=== PATIENT | female | born 1990 ===

== ENCOUNTER 2021-02-01 11:04 | Inpatient (IN) | payer BC ==
--- NOTE | 2021-02-01 08:03 | PCM.LDHP ---
L&D History of Present Illness - General Date of Service: 02/01/21 Admit Problem/Dx: Admission Diagnosis/Problem Admission Diagnosis/Problem 02/01/21 07:53 Donta is a 30-year-old 1 para 0 female admitted on 02/01/2021 at 40-0/7 weeks gestational age with an NOMAN of 02/01/2021 for induction of labor. Source of Information: Patient History Limitations: Reports: No Limitations - History of Present Illness Introduction:: Donta is a 30-year-old 1 para 0 female admitted on 02/01/2021 at 40-0/7 weeks gestational age with an NOMAN of 02/01/2021 for induction of labor. The procedure, process, expectations and limitations of induction of labor discussed in detail with patient. She appears understand and wishes to proceed. 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 She had menarche at age 11. Cycles regular. Last menstrual period started on 04/27/2020 and was definite. Her is dated by this last menstrual period and supported by at least 3 ultrasounds. Patient had a positive hCG on 05/23/2020. She is not using any control at the time of conception. She has had no abnormal Pap smears or STIs in the past. course. Initial first visit was with a very early ultrasound done on 06/19/2020 at 7-3/7 weeks gestational age. She was seen on a very regular basis throughout the . Her vital signs remained stable throughout the . Her weight gain was from 250.2 to 270.8 pounds. Fundal height growth was appropriate. Patient has a history of asthma which has been relatively stable during the . She desires epidural. She has a family history of factor V Leiden mutation but has tested negative for this. Her group B strep screen was negative. Risk factors include increased weight and distance from the hospital as she lives in [place], [place]. Prequel noninvasive screen done after 10 weeks was negative for trisomy 18, 13 and 21. Gender identification consistent with female. She did have a urinary tract infection during . Patient received her Tdap on 01/01/2021. She is rubella immune. Laboratory testing during shows blood to be all positive with a negative antibody screen. Hemoglobin is 12.7 g/dL and platelets are 338,000. She is rubella immune. RPR is nonreactive. Urine culture was negative. Hepatitis B surface antigen and HIV assays were both negative. Chlamydia and gonorrhea tests were negative. TSH done on 12/11/2020 prior to the was negative for abnormalities. Second trimester labs showed a hemoglobin of 11.7 g/dL. She was started on ferrous sulfate 325 mg p.o. daily at that time. Her platelet count was 307,000. Her 1 hour GTT was normal. RPR was nonreactive. Group B strep screen was negative. Allergies: Seasonal allergies only Medications: 1. Omeprazole 40 mg p.o. daily as needed for dyspepsia 2. Montelukast sodium 10 mg p.o. daily for asthma 3. vitamin 1 p.o. daily. 4. Advair Diskus inhaler 250-50 mcg per dose inhaler nation aerosol Powder breath activated 5. Ferrous sulfate 3 and 25 mg p.o. daily 6. Zyrtec 10 mg p.o. daily. Past medical history: 1. Asthma. 2. Seasonal allergies. Past surgical history: 1. [id number] 2. ACL knee surgery 2012 Family history: Mother is alive and well. Father is alive but with hypertension on medications. 2 brothers alive and well but 1 with ADHD. Maternal grandmother secondary to COPD. Maternal grandfather secondary to COPD. Both were smokers. Paternal grandmother alive and well but with hypertension. Paternal grandfather secondary to lung cancerwas a smoker. There is a maternal family history of a maternal aunt and multiple cousins on her maternal side that have factor V Leiden mutation. Patient has been evaluated with factor V Leiden evaluation it which has returned negative. There are no bleeding, related problems in the family. A maternal aunt was noted to have breast cancer in her 50s. Social history: Patient is . She is a [employer] Friend[employer]. She lives in [place], [place]. She is a college graduate. is [place]. She does not use any significant also alcohol, drugs or tobacco. Review of systems: In general patient has no complaints. Baby has been active. Skin: Negative Lungs: No infectious symptoms or shortness of breath Cardiovascular: No chest pain or exercise intolerance Breasts: No lumps, changes in size, pain, dimpling, discharge or axillary or supraclavicular concerns. Changes present that are associated with . GI: Negative : changes in body habitus noted. Musculoskeletal: Negative Neurological: Negative Physical exam: In general the patient is well-developed, well-nourished, pleasant female of stated age in no acute distress. Blood pressure on last evaluation clinic was 122/64. Weight was 270.8 pounds with first weight noted at 250.2 pounds. Height is 5 feet 6 inches. Prepregnancy body mass index was 39.5. Skin is warm dry without lesions. HEENT, neck and back within normal limits. Lungs are clear with good breath sounds in all lung sam. Cardiovascular exam shows regular and rhythm without murmurs. Breast exam was done at first visit and found to be normal and is not repeated at the time of this admission. Abdomen is gravid with last fundal height at 41 cm. Baby in vertex presentation by Mauro maneuvers and by cervical exam. Genital per digital exam at last visit shows cervix to be 1 to 2 cm, 70% effaced, very soft, -3 station. Extremities and neurological exam are grossly within normal limits. H&P Review of Systems - Review of Systems: Review Of Systems: See Below L&D Exam - Exam Exam: See Below - Problem List (1) 40 weeks gestation of SNOMED Code(s): 25736660 ICD Code: Z3A.40 - 40 WEEKS GESTATION OF Status: Acute (2) Obesity (BMI 35.0-39.9 without comorbidity) SNOMED Code(s): 720160766, 675140507 ICD Code: E66.9 - OBESITY, UNSPECIFIED Status: Acute Problem List Initiated/Reviewed/Updated: Yes Assessment/Plan Comment:: 1. Donta is a 30-year-old 1 para 0 female admitted on 02/01/2021 at 40- 0/7 weeks gestational age with an NOMAN of 02/01/2021 for induction of labor. 2. Risk factors for the include increased distance from the hospital, obesity, asthma 3. Group B strep negative 4. Patient plans to breast-feed. 5. Patient desires epidural in labor 6. Patient has received her Tdap during . She is rubella immune. Plan: 1. Cytotec cervical ripening initially: We will give 25 mcg dose first dose vaginally followed by at least 23 doses of 50 mcg vaginally on a every 3 hour basis. Will monitor her asthma very closely. She is to continue on her asthma medications at this time. The risks of Cytotec with history of asthma are discussed with the patient. She has consented to attempting Cytotec cervical ripening after discussion of potential risks and benefits in light of her history of asthma in . This cervical ripening will be followed by Pitocin induction with possible AROM as possible. 2. IV access prior to Cytotec placement 3. Electronic monitoring of labor per protocol 4. Epidural per patient desire for labor analgesia. 5. Anticipate 6. Support breast-feeding decision 7. Admission laboratory testing consist of Covid19 testing, CBC, RPR per protocol.
[2021-02-03] MEDS ORDERED: Sodium Chloride 0.9% 10 ML Syringe FLUSH PRN (08:20)
[2021-02-03] MEDS ORDERED: Nalbuphine 10 MG/1 ML Vial IVPUSH PRN (08:20)
[2021-02-03] MEDS ORDERED: Ondansetron 4 MG/2 ML SDV IVPUSH PRN (08:20)
[2021-02-03] MEDS ORDERED: Lidocaine 1% 50 ML MDV INJECT SCH (08:20)
[2021-02-03] MEDS ORDERED: Acetaminophen 325 MG Tab PO PRN (08:20)
[2021-02-03] MEDS ORDERED: Calcium Carbonate 500 MG Tab.Chew PO PRN (08:20)
[2021-02-03] MEDS ORDERED: Oxytocin/Lactated Ringers 10 UNIT/1,000 ML BAG IV SCH ×2 (08:30)
[2021-02-03] MEDS: Lactated Ringers 1,000 ML IV SCH (09:02)
[2021-02-03] MEDS ORDERED: diphenhydrAMINE 50 MG/ML SDV IVPUSH PRN (09:56)
[2021-02-03] MEDS ORDERED: fentaNYL 100 MCG/2 ML SDV EPIDUR PRN (09:56)
[2021-02-03] MEDS ORDERED: Oxytocin/Lactated Ringers 20 UNIT/1,000 ML BAG IV SCH (17:45)
[2021-02-04] MEDS ORDERED: Misoprostol 25 MCG (1/4 of 100 MCG) Tab VAG ONE ×2 (01:00→04:00)
[2021-02-04] MEDS: Oxytocin/Lactated Ringers 20 UNIT/1,000 ML BAG IV SCH ×2 (06:26→20:25)
--- NOTE | 2021-02-04 07:48 | PCM.SN.2 ---
- Free Text/Narrative Note: Progress note: Patient was found to be 2 cm, 80% effaced, -3 station, cephalic presentation, mid position on last evaluation last evening. Patient did not tolerate the exam well for a number of reasons. Soft tissue presents secondary to patient's body habitus seems to be associated with the very difficult nature of her exam. With Pitocin increased to 30milliunits/min patient did achieve a good labor pattern with moderate contractions every 3 minutes. Hospital course. Last evening the Pitocin was discontinued to allow patient to rest. At approximately 0100 hrs. on 02/04/2021 patient was given a dose of Cytotec 25 mcg vaginally. At 4:00 she is given a second dose of [id number] mcg. With this she has had some uterine irritability. heart tones are reassuring. No formal contractions are seen. Assessment: 1. 40-3/7-week intrauterine , slow progression of cervical dilation. 2. Difficult and uncomfortable exam secondary to soft tissue dystocia/discomfort secondary to patient's body habitus 3. Generally reassuring testing 4. Patient desiring epidural at some point Plan: 1. We will wait with any further cervical exams or attempts at rupture membranes until after patient is in a good labor pattern and has obtained epidural analgesia. 2. Continue intermittent monitoring of heart tones 3. Reassurance
[2021-02-04] MEDS: Lactated Ringers 1,000 ML IV SCH ×4 (10:09→20:25)
[2021-02-04] MEDS: Bupivacaine/fentaNYL/NS 100 ML Bag EPIDUR PRN (16:01)
[2021-02-04] MEDS: ePHEDrine 50 MG/ML SDV IVPUSH PRN ×3 (17:09→17:32)
--- NOTE | 2021-02-04 17:45 | PCM.SN.2 ---
- Free Text/Narrative Note: Procedure: PIV start Start: 1711 Stop: 1731 Called by OB RN to start PIV. She attempted to place x2 without success. U ltrasound utilized with successful attempt with long 20 jillian to right upper arm. Area localized with 0.2 ml of 1% lidocaine. Patient tolerated well. Tiffany Ac ESTHETICIAN SPA
[2021-02-05] MEDS: Lactated Ringers 1,000 ML IV SCH ×3 (00:45→05:54)
[2021-02-05] MEDS: Bupivacaine/fentaNYL/NS 100 ML Bag EPIDUR PRN (02:17)
--- NOTE | 2021-02-05 03:26 | PCM.SN.2 ---
- Free Text/Narrative Note: Progress note: Donta has been in reasonably good labor objectively evaluated with internal pressure catheter for approximately the last 12 hours since SROM. SROM occurred with resultant clear amniotic fluid. heart tones are reassuring. Vital signs are stable. Patient is comfortable with epidural in place and has been able to rest. Evaluation patient cervix reveals 5 cm dilation, -3 station, 90% effacement, soft, mid position. Patient tolerated exam well. Patient still on Pitocin augmentation with reasonably strong contractions occurring every 3 minutes. Assessment: 40-4/7-week intrauterine , very slow progression of labor despite intrauterine pressure catheter objectively adequate labor. Plan: 1. Monitor for just a short period time and if no progress is noted will consider a primary section. The procedure, risk, benefits, continued attempt at vaginal delivery all discussed with patient. She appears understand and is in agreement. 2. labs to be obtained 3. Continue monitoring until final decision is made.
[2021-02-05] MEDS ORDERED: ceFAZolin 1 GM in Premix Bag 1 BAG IV ONE (05:34)
[2021-02-05] MEDS ORDERED: ceFAZolin 2 GM in Premix Bag 1 BAG IV ONE (05:34)
[2021-02-05] MEDS ORDERED: Azithromycin 500 MG in Sodium Chloride 0.9% 250 ML IV STA (05:34)
[2021-02-05] MEDS ORDERED: Citric Acid/Sodium Citrate Solution 30 ML Cup PO ONE (05:34)
[2021-02-05] MEDS ORDERED: Metoclopramide 10 MG/2 ML SDV IVPUSH ONE (05:34)
[2021-02-05] MEDS ORDERED: Metoclopramide 10 MG/2 ML SDV ONE (05:43)
[2021-02-05] MEDS ORDERED: Citric Acid/Sodium Citrate Solution 30 ML Cup ONE (05:43)
[2021-02-05] MEDS ORDERED: Lidocaine 2% with EPINEPHrine 1:200,000 20 ML SDV ONE (05:46)
[2021-02-05] MEDS ORDERED: ceFAZolin 1 GM Vial ONE (05:46)
[2021-02-05] MEDS ORDERED: Ketorolac 30 MG/ML SDV ONE (05:46)
[2021-02-05] MEDS ORDERED: Oxytocin 10 Units/1 ML SDV ONE ×2 (05:46→05:49)
[2021-02-05] MEDS ORDERED: Ondansetron 4 MG/2 ML SDV ONE (05:46)
[2021-02-05] MEDS ORDERED: fentaNYL 100 MCG/2 ML SDV ONE (05:50)
[2021-02-05] MEDS ORDERED: Bupivacaine 0.5% 30 ML SDV ONE (05:59)
[2021-02-05] MEDS ORDERED: fentaNYL 100 MCG/2 ML SDV IVPUSH PRN (06:26)
[2021-02-05] MEDS ORDERED: diphenhydrAMINE 50 MG/ML SDV IVPUSH PRN ×2 (06:26→10:27)
[2021-02-05] MEDS ORDERED: Ondansetron 4 MG/2 ML SDV IVPUSH PRN (06:26)
--- NOTE | 2021-02-05 06:31 | PCM.PREANE ---
Preanesthetic Assessment - Procedure Proposed Procedure: Labor Epidural - Anesthesia/Transfusion/Family Hx Anesthesia History: Prior Anesthesia Without Reaction Family History of Anesthesia Reaction: No Transfusion History: No Prior Transfusion(s) - Review of Systems General: No Symptoms Pulmonary: Other (Asthma controlled with advair. ) Cardiovascular: No Symptoms Gastrointestinal: No Symptoms Neurological: No Symptoms Other: Reports: None (Obesity BMI 44) - Physical Assessment Vital Signs: Last Vital Signs Temp 37.6 C 02/03/21 08:21 Pulse 96 02/03/21 08:21 Resp 14 02/03/21 08:21 BP 124/86 02/03/21 08:21 Pulse Ox Height: 1.68 m Weight: 123.559 kg ASA Class: 3 Mental Status: Alert & Oriented x3 Airway Class: Mallampati = 1 Dentition: Reports: Normal Dentition Thyro-Mental Finger Breadths: 3 Mouth Opening Finger Breadths: 3 ROM/Head Extension: Full Lungs: Clear to Auscultation, Normal Respiratory Effort Cardiovascular: Regular Rate, Regular Rhythm - Lab Values: Laboratory Last Values WBC 12.27 K/mm3 (3.98-10.04) H 02/03/21 08:32 RBC 4.46 M/mm3 (3.98-5.22) 02/03/21 08:32 Hgb 13.1 gm/dl (11.2-15.7) 02/03/21 08:32 Hct 39.8 % (34.1-44.9) 02/03/21 08:32 MCV 89.2 fl (79.4-94.8) 02/03/21 08:32 MCH 29.4 pg (25.6-32.2) 02/03/21 08:32 MCHC 32.9 g/dl (32.2-35.5) 02/03/21 08:32 RDW Std Deviation 50.5 fL (36.4-46.3) H 02/03/21 08:32 Plt Count 284 K/mm3 (182-369) 02/03/21 08:32 MPV 10.1 fl (9.4-12.3) 02/03/21 08:32 Neut % (Auto) 76.4 % (34.0-71.1) H 02/03/21 08:32 Lymph % (Auto) 14.5 % (19.3-51.7) L 02/03/21 08:32 Roosevelt % (Auto) 6.7 % (4.7-12.5) 02/03/21 08:32 Eos % (Auto) 1.3 (0.7-5.8) 02/03/21 08:32 Baso % (Auto) 0.2 % (0.1-1.2) 02/03/21 08:32 Neut # (Auto) 9.38 K/mm3 (1.56-6.13) H 02/03/21 08:32 Lymph # (Auto) 1.78 K/mm3 (1.18-3.74) 02/03/21 08:32 Roosevelt # (Auto) 0.82 K/mm3 (0.24-0.36) H 02/03/21 08:32 Eos # (Auto) 0.16 K/mm3 (0.04-0.36) 02/03/21 08:32 Baso # (Auto) 0.02 K/mm3 (0.01-0.08) 02/03/21 08:32 Manual Slide Review Abnormal smear 02/03/21 08:32 RPR Non-reactive (NONREACTIVE) 02/03/21 08:32 SARS-CoV-2 RNA (HUBERT) Negative (NEGATIVE) 02/03/21 07:50 Blood Type O POSITIVE 02/05/21 05:19 Gel Antibody Screen Negative 02/05/21 05:19 - Allergies Allergies/Adverse Reactions: Allergies Allergy/AdvReac Type Severity Reaction Status Date / Time No Known Allergies Allergy Verified 02/03/21 08:24 - Acknowledgements Anesthesia Type Planned: Epidural Pt an Appropriate Candidate for the Planned Anesthesia: Yes Alternatives and Risks of Anesthesia Discussed w Pt/Guardian: Yes Pt/Guardian Understands and Agrees with Anesthesia Plan: Yes PreAnesthesia Questionnaire Respiratory History: Reports: Asthma Gastrointestinal History: Reports: [employer] History: Reports: - Past Surgical History GI Surgical History: Reports: Cholecystectomy Musculoskeletal Surgical History: Reports: Other (See Below) Other Musculoskeletal Surgeries/Procedures:: Lt ACL repair - SUBSTANCE USE Tobacco Use Status *Q: Never Tobacco User Tobacco Use Within Last Twelve Months: No Second Hand Smoke Exposure: No Recreational Drug Use History: No - HOME MEDS Home Medications: Home Meds Albuterol Sulfate [Albuterol Sulfate HFA] 1 puff INH ASDIRECTED PRN 02/03/21 [History] Cetirizine HCl [Zyrtec] 10 mg PO DAILY 02/03/21 [History] Ferrous Sulfate [Iron] 325 mg PO DAILY 02/03/21 [History] Fluconazole 1 tab PO DAILY MDD 3 02/03/21 [History] Fluticasone Propion/Salmeterol [Advair 250-50 Diskus] 1 spray NASBOTH DAILY 02/03/21 [History] Montelukast Sodium 10 mg PO DAILY 02/03/21 [History] Omeprazole 1 cap PO DAILY 02/03/21 [History] No122/Iron/Folic Acid [ Multi Tablet] 1 tab PO DAILY 02/03/21 [History] - CURRENT (IN HOUSE) MEDS Current Meds: Current Medications Acetaminophen (Acetaminophen 325 Mg Tab) 650 mg PO Q4H PRN PRN Reason: Pain (Mild 1-3) and fever Calcium Carbonate/Glycine (Calcium Carbonate 500 Mg Tab.Chew) 1,000 mg PO Q2H PRN PRN Reason: Indigestion Last Admin: 02/04/21 01:22 Dose: 1,000 mg Documented by: Diphenhydramine HCl (Diphenhydramine 50 Mg/Ml Sdv) 25 mg IVPUSH Q6H PRN PRN Reason: pruritis Last Admin: 02/05/21 00:59 Dose: 25 mg Documented by: Diphenhydramine HCl (Diphenhydramine 50 Mg/Ml Sdv) 25 mg IVPUSH Q6H PRN PRN Reason: Pruritis Ephedrine Sulfate (Ephedrine 50 Mg/Ml Sdv) 5 mg IVPUSH ASDIRECTED PRN PRN Reason: Hypotension Last Admin: 02/04/21 17:32 Dose: 10 mg Documented by: Fentanyl (Fentanyl 100 Mcg/2 Ml Sdv) 100 mcg EPIDUR Q3H PRN PRN Reason: Pain Last Admin: 02/04/21 16:00 Dose: 100 mcg Documented by: Fentanyl (Fentanyl 100 Mcg/2 Ml Sdv) 50 mcg IVPUSH Q5M PRN PRN Reason: Pain Fentanyl/Bupivacaine HCl (Bupivacaine/Fentanyl/Ns 100 Ml Bag) 100 ml EPIDUR ASDIRECTED PRN PRN Reason: Pain Last Admin: 02/05/21 02:17 Dose: 100 ml Documented by: Oxytocin/Lactated Ringer's (Pitocin In Lr 10 Units/1,000 Ml) 10 unit in 1,000 mls @ 100 mls/hr IV .CONTINUOUS CA; Protocol Lactated Ringer's (Ringers, Lactated) 1,000 mls @ 100 mls/hr IV ASDIRECTED CA Last Admin: 02/05/21 05:54 Dose: 100 mls/hr Documented by: Oxytocin/Lactated Ringer's (Pitocin In Lr 20 Units/1,000 Ml) 20 unit in 1,000 mls @ 6 mls/hr IV TITRATE CA; Protocol Last Admin: 02/04/21 20:25 Dose: 90 mls/hr Documented by: Azithromycin 500 mg/ Sodium (Chloride) 250 mls @ 250 mls/hr IV ONETIME STA Stop: 02/05/21 06:33 Last Admin: 02/05/21 05:57 Dose: 250 mls/hr Documented by: Lidocaine HCl (Lidocaine 1% 50 Ml Mdv) 50 ml INJECT ONETIME CA Nalbuphine HCl (Nalbuphine 10 Mg/1 Ml Vial) 10 mg IVPUSH Q2H PRN PRN Reason: Pain Ondansetron HCl (Ondansetron 4 Mg/2 Ml Sdv) 4 mg IVPUSH Q4H PRN PRN Reason: Nausea/Vomiting Last Admin: 02/04/21 17:45 Dose: 4 mg Documented by: Ondansetron HCl (Ondansetron 4 Mg/2 Ml Sdv) 4 mg IVPUSH ONETIME PRN PRN Reason: Nausea/Vomiting Sodium Chloride (Sodium Chloride 0.9% 10 Ml Syringe) 10 ml FLUSH ASDIRECTED PRN PRN Reason: Keep Vein Open Discontinued Medications Bupivacaine HCl (Bupivacaine 0.5% 30 Ml Sdv) Confirm Administered Dose 30 ml .ROUTE .STK-MED ONE Stop: 02/05/21 06:00 Cefazolin Sodium (Cefazolin 1 Gm Vial) Confirm Administered Dose 3 gm .ROUTE .STK-MED ONE Stop: 02/05/21 05:47 Citric Acid/Sodium Citrate (Citric Acid/Sodium Citrate Solution 30 Ml Cup) Confi rm Administered Dose 30 ml .ROUTE .STK-MED ONE Stop: 02/05/21 05:44 Citric Acid/Sodium Citrate (Citric Acid/Sodium Citrate Solution 30 Ml Cup) 30 ml PO ONETIME ONE Stop: 02/05/21 05:35 Last Admin: 02/05/21 05:55 Dose: 30 ml Documented by: Fentanyl (Fentanyl 100 Mcg/2 Ml Sdv) Confirm Administered Dose 100 mcg .ROUTE .STK-MED ONE Stop: 02/05/21 05:51 Oxytocin/Lactated Ringer's (Pitocin In Lr 10 Units/1,000 Ml) 10 unit in 1,000 mls @ 12 mls/hr IV TITRATE CA; Protocol Last Titration: 02/03/21 17:59 Dose: 30 munits/min, 180 mls/hr Documented by: Oxytocin/Lactated Ringer's (Pitocin In Lr 20 Units/1,000 Ml) 20 unit in 1,000 mls @ 90 mls/hr IV TITRATE CA; Protocol Last Admin: 02/03/21 18:36 Dose: 90 mls/hr Documented by: Cefazolin Sodium/Dextrose 2 gm (/ Premix) 50 mls @ 100 mls/hr IV ONETIME ONE Stop: 02/05/21 06:03 Cefazolin Sodium/Dextrose 1 gm (/ Premix) 50 mls @ 100 mls/hr IV ONETIME ONE Stop: 02/05/21 06:03 Ketorolac Tromethamine (Ketorolac 30 Mg/Ml Sdv) Confirm Administered Dose 30 mg .ROUTE .STK-MED ONE Stop: 02/05/21 05:47 Lidocaine/Epinephrine (Lidocaine 2% With Epinephrine 1:200,000 20 Ml Sdv) Confirm Administered Dose 20 ml .ROUTE .STK-MED ONE Stop: 02/05/21 05:47 Metoclopramide HCl (Metoclopramide 10 Mg/2 Ml Sdv) Confirm Administered Dose 10 mg .ROUTE .STK-MED ONE Stop: 02/05/21 05:44 Metoclopramide HCl (Metoclopramide 10 Mg/2 Ml Sdv) 10 mg IVPUSH ONETIME ONE Stop: 02/05/21 05:35 Last Admin: 02/05/21 05:55 Dose: 10 mg Documented by: Misoprostol (Misoprostol 25 Mcg (1/4 Of 100 Mcg) Tab) 25 mcg VAG ONETIME ONE Stop: 02/04/21 01:01 Last Admin: 02/04/21 01:14 Dose: 25 mcg Documented by: Misoprostol (Misoprostol 25 Mcg (1/4 Of 100 Mcg) Tab) 50 mcg VAG ONETIME ONE Stop: 02/04/21 04:01 Last Admin: 02/04/21 04:15 Dose: 50 mcg Documented by: Ondansetron HCl (Ondansetron 4 Mg/2 Ml Sdv) Confirm Administered Dose 4 mg .ROUTE .STK-MED ONE Stop: 02/05/21 05:47 Oxytocin (Oxytocin 10 Units/1 Ml Sdv) Confirm Administered Dose 10 unit .ROUTE .STK-MED ONE Stop: 02/05/21 05:47 Oxytocin (Oxytocin 10 Units/1 Ml Sdv) Confirm Administered Dose 10 unit .ROUTE .STK-MED ONE Stop: 02/05/21 05:50
[2021-02-05] MEDS ORDERED: Methylergonovine 0.2 MG/1 ML Amp ONE ×2 (06:33→09:16)
[2021-02-05] MEDS ORDERED: Dexamethasone 4 MG/ML 5 ML MDV ONE (06:35)
[2021-02-05] MEDS ORDERED: Lactated Ringers 1,000 ML ONE ×2 (06:42)
[2021-02-05] MEDS ORDERED: Morphine PF 10 MG/10 ML SDV ONE (06:45)
--- NOTE | 2021-02-05 07:13 | PCM.POSTAN ---
POST ANESTHESIA ASSESSMENT - MENTAL STATUS Mental Status: Alert, Oriented - VITAL SIGNS Vital Signs: Last Vital Signs Temp 37.6 C 02/03/21 08:21 Pulse 96 02/03/21 08:21 Resp 14 02/03/21 08:21 BP 124/86 02/03/21 08:21 Pulse Ox 0705 86/62 78 23 97.2 23 - RESPIRATORY Respiratory Status: Respiratory Rate WNL, Airway Patent, O2 Saturation Stable - CARDIOVASCULAR CV Status: Pulse Rate WNL, Blood Pressure Stable - GASTROINTESTINAL GI Status: No Symptoms - PAIN Pain Score: 0 - POST OP HYDRATION Hydration Status: Adequate & Stable
--- NOTE | 2021-02-05 07:23 | PCM.OPNOTE ---
- General Post-Op/Procedure Note Date of Surgery/Procedure: 02/05/21 Operative Procedure(s): Primary low uterine segment transverse section through Pfannenstiel skin incision Findings: Cervix was dilated to 5 cm, 80% effaced, -3 to -4 station, mid to anterior position, soft. Baby is in vertex presentation. Amniotic fluid was clear. At the time of surgery uterus, tubes and ovaries were consistent with term . No abnormalities were noted.\\Baby was delivered at 0624 hrs. Had Apgars of 8 and 9. Weight was 4340 g (9 pounds 9 ounces), length was 21 inches. Pre Op Diagnosis: 1. 40-4/7 weeks intrauterine , failure to progress Post-Op Diagnosis: Same with delivery of a macrosomic baby Anesthesia Technique: Epidural Other Anesthesia Type: Marcaine 0.5% - 20 cclocal Primary Surgeon: Oneil Mendes Secondary Surgeon: Hallie Ac Anesthesia Provider: Jeannette Garrett Licensed Customs Broker: Tiffany cA (Nurse health program analyst) Reason Licensed Customs Broker Was Necessary: Assistance, retraction, patient safety, quality of care. Fluid Replacement, Intraop: 1,200 Output, Urine Amount: 100 EBL in mLs: 900 Drain/Tube Comments:: Indwelling bladder catheter Complications: None Condition: Good Free Text/Narrative:: Intake & Output 02/04/21 02/05/21 02/05/21 22:59 06:59 14:59 Intake Total 4000 2000 Output Total Balance 4016 2000 Surgery duration: 34 minutes Surgery duration: Procedure: The patient is appropriately consented. Patient was transferred to the room and placed in a sitting position. Epidural used for labor analgesia was used to obtain anesthesia. After confirmation of adequate anesthesia patient was placed in a supine position with a wedge under her right side to facilitate left lateral positioning. The patient was prepped and draped in usual fashion after Stevenson catheter was already placed . The anesthetic was checked and found to be adequate. 20 mL of Marcaine 0.5% was injected locally in the Pfannenstiel incision site. The Pfannenstiel skin incision was then made and carried down through skin, subcutaneous and fascial layers. The fascia was then undermined superiorly and inferiorly to allow for adequate operating room. The recti muscles midline and preperitoneal fat was bluntly dissected. Peritoneal cavity was entered longitudinally. The vesicouterine peritoneum was then incised transversely and bladder flap was developed. Myometrium was incised transversely to the level of the amniotic sac. This incision was extended bilaterally in a blunt fashion. The amniotic sac was then ruptured resulting in clear amniotic fluid. A hand is placed in the low uterine segment and the baby's head was brought forth through the incision. The baby was completely delivered using fundal pressure in a routine fashion. The nose and mouth were bulb suctioned. Baby's cord was clamped x2 cut and baby was handed off to attending information management specialist Dr Walker. Placenta was expressed after cord blood was obtained. Uterus was then exteriorized to allow for easier closure. The cervix was assessed and found to be dilated adequately to allow egress of blood. The uterus was closed in 2 layers. The first layer a running locked suture of 0 Monocryl, the second layer a running horizontal mattress suture of 0 Monocryl. [id number] suture was placed at mid incision and at the left end of the uterine incision to control 2 bleeders. Hemostasis confirmed at this time. Sponge, instrument and needle counts are correct. The patient was given Methergine 0.2 mg IM to facilitate increase in uterine tone and decrease likelihood of bleeding. The uterus was returned to the abdominal cavity and lateral gutters were cleared of blood. Once again sponge needle counts are correct. The anterior abdominal wall was closed with a #1 PDS suture from angle to angle. The subcutaneous area was found to be free of any bleeders. interrupted sutures of 3-0 Monocryl were used to reapproximate the subcutaneous layer.Skin was closed with a running subcuticular stitch of 3-0 Monocryl in a vertical mattress suture fashion using a Adair needle. Prineo mesh/glue was then applied to further approximate the incision. It should be noted that patient received 3 g of Ancef preoperatively for infection prophylaxis and had Pitocin infused after delivery of the placenta to facilitate uterine contraction. She also had sequential compression stockings in place for DVT prophylaxis. Patient was discharged from the operating room in satisfactory condition.
[2021-02-05] MEDS ORDERED: Misoprostol 200 MCG Tab ONE (08:31)
[2021-02-05] MEDS ORDERED: Misoprostol 200 MCG Tab PO ONE (08:33)
[2021-02-05] MEDS ORDERED: Methylergonovine 0.2 MG/1 ML Amp IM STA ×2 (09:15→14:45)
--- NOTE | 2021-02-05 09:23 | PCM.SN.2 ---
- Free Text/Narrative Note: I was called concerning post operative vaginal bleeding and uterine fundal height above the umbilicus. Nurses expressed concern about potential retained clots leading to lack of contraction/involution of the uterus and continued postoperative bleeding after section done this AM. Patient had an extended labor. She had reasonably good uterine contractility after delivery with the assistance of Methergine 0.2 mg IM and IV Pitocin. On evaluation patient is having her blood drawn. Her pulse was 122. Blood pressure is good. O2 saturations were 97-98% on room air. Patient was feeling fine. Was beginning to have some discomfort coming back after the epidural has begun wearing off. Incision appears to be dry and intact. No evidence of abdominal hematoma. Initially uterus was approximately 3 to 4 cm above the umbilicus. Patient's evaluation was very difficult because of her body habitus and her increased weight. Nurses reported she had probably about 900-1000 ml of blood loss in the PACU and since returning to the floor. A clot was previously expressed and she had some on bright red blood noted on repeated chux that were changed. Vaginal exam was performed and with this couple clots were expressed. Probably another 300 cc total. With this uterine fundal height returned to about the level of the umbilicus. Patient previously given 400 mcg of Cytotec buccally. Assessment: 1. Vaginal bleeding after section this morning. Uterine enlargement extending to above the umbilicus with reduction in size after expression of clots vaginally. Findings are probably consistent with some uterine atony which patient is at high risk for because of her extended labor. 2. Prolonged labor course with induction over 2 days with resultant failure to progress and done the same. 3. Urine output was approximately 125-150 mL in the PACU. Has been approximate 25 mL over the last hour upon return to the floor. The blood is somewhat blood- tinged. 4. Patient's pain control is adequate at this time. Plan: 1. Tranexamic acid 1 g to be given IV over 10 minutes 2. Methergine 0.2 mg IM to be given now 3. Obtain labs consist of CBC, coags, comprehensive metabolic profile 4. We will continue to monitor bleeding 5. We will type, crossmatch and transfuse as indicated by blood count and continued bleeding 6. If bleeding continues will consider doing an ultrasound to evaluate for other potential causes of blood loss such as a hematoma 7. Continue monitoring urine output, vital signs and O2 sat.
[2021-02-05] MEDS ORDERED: Naloxone 0.4 MG/ML SDV IVPUSH PRN (10:27)
[2021-02-05] MEDS ORDERED: ePHEDrine 50 MG/ML SDV IVPUSH PRN (10:27)
[2021-02-05] MEDS ORDERED: Ondansetron 4 MG/2 ML SDV IV PRN (10:27)
[2021-02-05] MEDS ORDERED: Dextrose 5%-Lactated Ringers 1,000 ML IV SCH (10:27)
[2021-02-05] MEDS ORDERED: Sodium Chloride 0.9% 1,000 ML IV ONE (10:55)
[2021-02-05] MEDS ORDERED: Sodium Chloride 0.9% 1,000 ML ONE (10:58)
[2021-02-05] MEDS: Simethicone 80 MG Tab.Chew PO SCH ×3 (14:07→21:51)
[2021-02-05] MEDS: Ibuprofen 800 MG Tab PO SCH ×2 (14:07→21:52)
[2021-02-05] MEDS: Docusate Sodium 100 MG Cap PO SCH ×2 (14:32→21:52)
[2021-02-05] MEDS: Prenatal Multivitamin with Calcium/Folic Acid/Iron Tab PO SCH (14:32)
[2021-02-05] MEDS ORDERED: Misoprostol 200 MCG Tab PO SCH ×3 (15:00→19:00)
--- NOTE | 2021-02-05 16:24 | US ---
Pelvic ultrasound: Multiple real-time images were obtained transabdominally. Comparison: No previous pelvic ultrasound is available. Study is somewhat suboptimal secondary to the patient body habitus. Mixed echogenic debris is seen within a distended endometrial cavity. Findings presumably represent blood clot. Uterine measurements are length 19.8 cm, AP height 8.8 cm, transverse width 9.2 cm. Ovaries are not visualized. No free fluid is seen. Impression: 1. Distended endometrial cavity containing mixed echogenic debris which is most likely from blood clot. Diagnostic code #3
[2021-02-05] MEDS: Acetaminophen/oxyCODONE 325-5 MG Tab PO PRN (18:05)
[2021-02-05] MEDS: Misoprostol 200 MCG Tab PO SCH (23:11)
[2021-02-06] MEDS: Misoprostol 200 MCG Tab PO SCH ×2 (03:07→06:54)
[2021-02-06] MEDS: Ibuprofen 800 MG Tab PO SCH ×3 (06:54→23:29)
--- NOTE | 2021-02-06 08:00 | PCM48HPAN ---
Post Anesthesia Note - EVALUATION WITHIN 48HRS OF ANESTHETIC Vital Signs in Normal Range: Yes Patient Participated in Evaluation: Yes Respiratory Function Stable: Yes Airway Patent: Yes Cardiovascular Function Stable: Yes Hydration Status Stable: Yes Pain Control Satisfactory: Yes Nausea and Vomiting Control Satisfactory: Yes Mental Status Recovered: Yes Vital Signs: Last Vital Signs Temp 98.4 F 02/05/21 20:30 Pulse 82 02/05/21 20:30 Resp 16 02/06/21 07:00 BP 106/58 L 02/05/21 20:30 Pulse Ox 98 02/06/21 07:00 - COMMENTS/OBSERVATIONS Free Text/Narrative:: Patient denying anesthetic complications.
[2021-02-06] MEDS: Simethicone 80 MG Tab.Chew PO SCH ×4 (08:21→21:14)
[2021-02-06] MEDS: Docusate Sodium 100 MG Cap PO SCH ×3 (08:23→23:30)
--- NOTE | 2021-02-06 09:07 | PCM.SN.2 ---
- Free Text/Narrative Note: Post Operative Progress Note POD #1 Subjective: Doing well overall this morning. Reports that she was having some episodes of feeling warm and feeling feverish as well as chills. Reports that it started several hours after taking the Cytotec for uterine tone. Reports that the symptoms have improved as she has gotten further from the last dose of Cytotec. Ambulating without difficulty. Lochia minimal. Stevenson catheter was removed this morning and has felt like she needed to urinate but was unable to void. Passing flatus. Tolerating regular diet without nausea or vomiting. Pain controlled with oral medications. Bottlefeeding with minimal difficulty. Denies any milk production at this time. Denies any lightheadedness, dizziness or shortness of breath with ambulation. Objective: Vitals: Vital Signs - 24 hr 02/05/21 02/05/21 02/05/21 09:15 09:18 10:21 Temperature 37.1 C Pulse, 129 H 126 H 101 H Peripheral Respiratory 16 Rate Blood Pressure 100/60 128/95 H O2 Sat by Pulse 96 96 100 Oximetry 02/05/21 02/05/21 02/05/21 11:04 11:30 13:03 Temperature 36.8 C 36.4 C Pulse, 93 113 H 109 H Peripheral Respiratory 16 16 Rate Blood Pressure 114/75 113/74 O2 Sat by Pulse 99 99 100 Oximetry 02/05/21 02/05/21 02/05/21 16:06 20:00 20:30 Temperature 36.9 C 36.9 C Pulse, 76 82 Peripheral Respiratory 16 16 16 Rate Blood Pressure 102/61 106/58 L O2 Sat by Pulse 100 99 99 Oximetry Physical Exam General: Alert and oriented, no acute distress Lungs: Clear to auscultation bilaterally Heart: Regular rate and rhythm Abdomen: Soft, minimal appropriate tenderness, non-distended, fundus midline, nontender and at the umbilicus Incision: Clean, dry and intact, no erythema, bleeding or drainage with Prineo dressing in place Extremities: No edema in bilateral lower extremities, no calf tenderness bilaterally Labs: Laboratory Results - last 24 hr 02/03/21 02/05/21 02/05/21 Range/Units 08:32 09:06 09:06 WBC 25.25 H (3.98-10.04) K/mm3 RBC 3.51 L (3.98-5.22) M/mm3 Hgb 10.3 L D (11.2-15.7) gm/dl Hct 31.8 L (34.1-44.9) % MCV 90.6 (79.4-94.8) fl MCH 29.3 (25.6-32.2) pg MCHC 32.4 (32.2-35.5) g/dl RDW Std Deviation 50.9 H (36.4-46.3) fL Plt Count 271 (182-369) K/mm3 MPV 10.3 (9.4-12.3) fl Neut % (Auto) 92.1 H (34.0-71.1) % Lymph % (Auto) 3.5 L (19.3-51.7) % [place] % (Auto) 3.8 L (4.7-12.5) % Eos % (Auto) 0 L (0.7-5.8) Baso % (Auto) 0.1 (0.1-1.2) % Neut # (Auto) 23.26 H (1.56-6.13) K/mm3 Lymph # (Auto) 0.89 L (1.18-3.74) K/mm3 [place] # (Auto) 0.95 H (0.24-0.36) K/mm3 Eos # (Auto) 0.01 L (0.04-0.36) K/mm3 Baso # (Auto) 0.02 (0.01-0.08) K/mm3 Manual Slide Review Abnormal smear PT (9.7-12.0) SECONDS INR APTT (21.7-31.4) SECONDS Sodium 137 (136-145) mEq/L Potassium 4.3 (3.5-5.1) mEq/L Chloride 106 (98-107) mEq/L Carbon Dioxide 19 L (21-32) mEq/L Anion Gap 16.3 H (5-15) BUN 11 (7-18) mg/dL Creatinine 1.0 (0.55-1.02) mg/dL Est Cr Clr Drug Dosing 76.31 mL/min Estimated GFR (MDRD) > 60 (>60) mL/min BUN/Creatinine Ratio 11.0 L (14-18) Glucose 99 (70-99) mg/dL Calcium 8.1 L (8.5-10.1) mg/dL Total Bilirubin 0.6 (0.2-1.0) mg/dL AST 16 (15-37) U/L ALT 20 (14-59) U/L Alkaline Phosphatase 147 H (46-116) U/L Total Protein 4.9 L (6.4-8.2) g/dl Albumin 1.8 L (3.4-5.0) g/dl Globulin 3.1 gm/dL Albumin/Globulin Ratio 0.6 L (1-2) Hepatitis C Antibody <0.1 (0.0-0.9) s/co ratio 02/05/21 02/05/21 02/05/21 Range/Units 09:06 09:06 16:30 WBC 24.45 H (3.98-10.04) K/mm3 RBC 2.79 L (3.98-5.22) M/mm3 Hgb 8.2 L D (11.2-15.7) gm/dl Hct 25.5 L (34.1-44.9) % MCV 91.4 (79.4-94.8) fl MCH 29.4 (25.6-32.2) pg MCHC 32.2 (32.2-35.5) g/dl RDW Std Deviation 49.7 H (36.4-46.3) fL Plt Count 232 (182-369) K/mm3 MPV 10.1 (9.4-12.3) fl Neut % (Auto) 87.2 H (34.0-71.1) % Lymph % (Auto) 5.8 L (19.3-51.7) % [place] % (Auto) 6.4 (4.7-12.5) % Eos % (Auto) 0 L (0.7-5.8) Baso % (Auto) 0.1 (0.1-1.2) % Neut # (Auto) 21.32 H (1.56-6.13) K/mm3 Lymph # (Auto) 1.42 (1.18-3.74) K/mm3 [place] # (Auto) 1.57 H (0.24-0.36) K/mm3 Eos # (Auto) 0.00 L (0.04-0.36) K/mm3 Baso # (Auto) 0.02 (0.01-0.08) K/mm3 Manual Slide Review Abnormal smear PT 10.6 (9.7-12.0) SECONDS INR 0.99 APTT 31.1 (21.7-31.4) SECONDS Sodium (136-145) mEq/L Potassium (3.5-5.1) mEq/L Chloride (98-107) mEq/L Carbon Dioxide (21-32) mEq/L Anion Gap (5-15) BUN (7-18) mg/dL Creatinine (0.55-1.02) mg/dL Est Cr Clr Drug Dosing mL/min Estimated GFR (MDRD) (>60) mL/min BUN/Creatinine Ratio (14-18) Glucose (70-99) mg/dL Calcium (8.5-10.1) mg/dL Total Bilirubin (0.2-1.0) mg/dL AST (15-37) U/L ALT (14-59) U/L Alkaline Phosphatase (46-116) U/L Total Protein (6.4-8.2) g/dl Albumin (3.4-5.0) g/dl Globulin gm/dL Albumin/Globulin Ratio (1-2) Hepatitis C Antibody (0.0-0.9) s/co ratio 02/06/21 Range/Units 05:44 WBC 17.44 H (3.98-10.04) K/mm3 RBC 2.71 L (3.98-5.22) M/mm3 Hgb 7.9 L (11.2-15.7) gm/dl Hct 25.0 L (34.1-44.9) % MCV 92.3 (79.4-94.8) fl MCH 29.2 (25.6-32.2) pg MCHC 31.6 L (32.2-35.5) g/dl RDW Std Deviation 51.1 H (36.4-46.3) fL Plt Count 246 (182-369) K/mm3 MPV 10.1 (9.4-12.3) fl Neut % (Auto) 79.2 H (34.0-71.1) % Lymph % (Auto) 14.4 L (19.3-51.7) % [place] % (Auto) 5.6 (4.7-12.5) % Eos % (Auto) 0.7 (0.7-5.8) Baso % (Auto) 0.1 (0.1-1.2) % Neut # (Auto) 13.79 H (1.56-6.13) K/mm3 Lymph # (Auto) 2.52 (1.18-3.74) K/mm3 [place] # (Auto) 0.98 H (0.24-0.36) K/mm3 Eos # (Auto) 0.13 (0.04-0.36) K/mm3 Baso # (Auto) 0.02 (0.01-0.08) K/mm3 Manual Slide Review Abnormal smear PT (9.7-12.0) SECONDS INR APTT (21.7-31.4) SECONDS Sodium (136-145) mEq/L Potassium (3.5-5.1) mEq/L Chloride (98-107) mEq/L Carbon Dioxide (21-32) mEq/L Anion Gap (5-15) BUN (7-18) mg/dL Creatinine (0.55-1.02) mg/dL Est Cr Clr Drug Dosing mL/min Estimated GFR (MDRD) (>60) mL/min BUN/Creatinine Ratio (14-18) Glucose (70-99) mg/dL Calcium (8.5-10.1) mg/dL Total Bilirubin (0.2-1.0) mg/dL AST (15-37) U/L ALT (14-59) U/L Alkaline Phosphatase (46-116) U/L Total Protein (6.4-8.2) g/dl Albumin (3.4-5.0) g/dl Globulin gm/dL Albumin/Globulin Ratio (1-2) Hepatitis C Antibody (0.0-0.9) s/co ratio ASSESSMENT: 31-year-old female -0-0-1 s/p primary section POD #1 for arrest of dilation at 5 cm, complicated by hemorrhage with EBL of approximately 2500 mL, asthma and obesity PLAN: * Doing well overall this morning * No evidence of significant symptoms from her hemorrhage. Her hemoglobin this morning was 7.9 which is stable from yesterday afternoon when it was 8.2. Patient is not having any symptoms from this blood loss following her section. Continue to monitor her blood loss and symptoms closely. * Bottlefeeding with minimal difficulty. Assist as needed * Incision healing well. Continue to keep clean and dry. * Lochia minimal. Continue to monitor for appropriate lochia. * Continue routine post-operative care * Monitor for signs and symptoms of endometritis due to the clearing of clots from the lower uterine segment. Suspect that her fever overnight and this morning was due to the Cytotec that was given for uterine tone. Cytotec discontinued this morning due to ongoing good uterine tone overnight and side effects from the medication. * Anticipate discharge home tomorrow if patient continues to improve and is stable for discharge Carlos A Weiner MD 9:05 AM 02/06/2021
[2021-02-06] MEDS: Prenatal Multivitamin with Calcium/Folic Acid/Iron Tab PO SCH (11:17)
[2021-02-06] MEDS: Acetaminophen/oxyCODONE 325-5 MG Tab PO PRN ×2 (17:01→21:14)
[2021-02-07] MEDS: Acetaminophen/oxyCODONE 325-5 MG Tab PO PRN ×3 (01:20→11:23)
[2021-02-07] MEDS: Ibuprofen 800 MG Tab PO SCH (06:06)
[2021-02-07] MEDS: Simethicone 80 MG Tab.Chew PO SCH (08:04)
[2021-02-07] MEDS: Docusate Sodium 100 MG Cap PO SCH ×2 (08:04→10:42)
[2021-02-07] MEDS: Prenatal Multivitamin with Calcium/Folic Acid/Iron Tab PO SCH (09:46)
--- NOTE | 2021-02-07 14:45 | PCM.DCSUM1 ---
Discharge Summary - Hospital Course Free Text/Narrative:: Donta is a 31-year-old 1 now para 1-0-0-1 white female who was admitted on 02/03/2021 for elective induction of labor at 40-2/7 weeks gestational age. She underwent a very long induction of labor and then failed to progress after around 5 cm. Please see admission history and physical and progress notes for details concerning hospital course. Patient was taken to surgery on 02/05/2021. Please see operative report for details. She underwent a primary low segment transverse section through Pfannenstiel skin incision. Findings at the time of delivery were as follows: Baby is in vertex presentation. Amniotic fluid was clear. At the time of surgery uterus, tubes and ovaries were consistent with term . No abnormalities were noted.\\Baby was delivered at 0624 hrs. Had Apgars of 8 and 9. Weight was 4340 g (9 pounds 9 ou nces), length was 21 inches. She had approximately 900-1000 cc of blood loss at the time of surgery. In the next 24 hours she continued to have an increased rate of flow and over the course of the first 36 hours after surgery had approximately another 1200 cc. Serial CBCs done showed a hemoglobin to decrease to 7.9 mg/dL. Patient is doing well with this however she is ambulating without problems, feels somewhat tired but has no near syncopal episodes. Her vital signs are stable. She is afebrile. White count was elevated at time prior to her but has slowly come down and she is showing no signs of infection at this time. She is breast-feeding without problems. Incision appears to be healing well. She is desiring discharge home. Diagnosis: Stroke: No - Discharge Data Discharge Date: 02/07/21 Discharge Disposition: Home, Self-Care 01 Condition: Good - Referral to Home Health Primary Care Physician: Oneil Mendes MD - Discharge Diagnosis/Problem(s) (1) 40 weeks gestation of SNOMED Code(s): 43991349 ICD Code: Z3A.40 - 40 WEEKS GESTATION OF Status: Acute (2) Obesity (BMI 35.0-39.9 without comorbidity) SNOMED Code(s): 105306907, 448428647 ICD Code: E66.9 - OBESITY, UNSPECIFIED Status: Acute - Patient Summary/Data Operative Procedure(s) Performed: Primary low uterine segment transverse section through Pfannenstiel skin incision - Patient Instructions Diet: Regular Diet as Tolerated (Nursing diet with increased calories and calcium as recommended) Activity: As Tolerated (No lifting greater than 15 pounds or driving a car x10 days. No intercourse or tampons until seen back.) Driving: Do Not Drive Showering/Bathing: May Shower Wound/Incision Care: Keep Operative Site/Wound Site Clean and Dry Notify Provider of: Fever, Increased Pain, Swelling and Redness, Nausea and/or Vomiting - Discharge Plan Home Medications: Home Meds Albuterol Sulfate [Albuterol Sulfate HFA] 1 puff INH ASDIRECTED PRN 02/03/21 [History] Ferrous Sulfate [Iron] 325 mg PO DAILY 02/03/21 [History] Fluticasone Propion/Salmeterol [Advair 250-50 Diskus] 1 spray NASBOTH DAILY 02/03/21 [History] Montelukast Sodium 10 mg PO DAILY 02/03/21 [History] No122/Iron/Folic Acid [ Multi Tablet] 1 tab PO DAILY 02/03/21 [History] Acetaminophen/oxyCODONE [Percocet 325-5 MG] 1 tab PO Q4H PRN tablet 02/07/21 [Rx] Acetaminophen/oxyCODONE [Percocet 325-5 MG] 2 tab PO Q4H PRN tablet 02/07/21 [Rx] Docusate Sodium [Colace] 100 mg PO Q12H cap 02/07/21 [Rx] Ibuprofen [Motrin] 800 mg PO Q8H tablet 02/07/21 [Rx] Patient Handouts: Suppressing Your Milk Supply, Delivery, Care After, Iron-Rich Diet Referrals: Oneil Mendes MD [Primary Care Provider] - (Follow up with Dr. Mendes in two weeks.) - Discharge Summary/Plan Comment DC Time >30 min.: No Discharge Summary/Plan Comment: Discharge instructions: 1. Discharge home 2. Diet, activity and follow-up discussed with patient. Recommend nursing diet with increased calories and calcium. 3. Precautions given concern increased pain, bleeding, temperature, signs/ symptoms of DVT/PE. 4. Medications per home medication was printed, discussed with and given to the patient. 5. Return to clinic-Dr. Mendes-[facility] in 2 weeks. Diagnosis: 1. Term -delivered 2. Failure to progress with resultant 3. Anemia secondary to and acute blood loss at the time of surgery and in the immediate period Condition: Good - Patient Data Vitals - Most Recent: Last Vital Signs Temp 36.4 C 02/07/21 08:07 Pulse 75 02/07/21 08:07 Resp 16 02/07/21 08:07 BP 108/67 02/07/21 08:07 Pulse Ox 96 02/07/21 08:07 Weight - Most Recent: 123.559 kg I&O - Last 24 hours: Intake & Output 02/06/21 02/07/21 02/07/21 22:59 06:59 14:59 Intake Total 0 120 Balance 0 120 Med Orders - Current: Current Medications Discontinued Medications Acetaminophen (Acetaminophen 325 Mg Tab) 650 mg PO Q4H PRN PRN Reason: Pain (Mild 1-3) and fever Bupivacaine HCl (Bupivacaine 0.5% 30 Ml Sdv) Confirm Administered Dose 30 ml .ROUTE .STK-MED ONE Stop: 02/05/21 06:00 Last Admin: 02/05/21 06:19 Dose: 20 ml Documented by: Calcium Carbonate/Glycine (Calcium Carbonate 500 Mg Tab.Chew) 1,000 mg PO Q2H PRN PRN Reason: Indigestion Last Admin: 02/04/21 01:22 Dose: 1,000 mg Documented by: Cefazolin Sodium (Cefazolin 1 Gm Vial) Confirm Administered Dose 3 gm .ROUTE .STK-MED ONE Stop: 02/05/21 05:47 Citric Acid/Sodium Citrate (Citric Acid/Sodium Citrate Solution 30 Ml Cup) Confirm Administered Dose 30 ml .ROUTE .STK-MED ONE Stop: 02/05/21 05:44 Last Admin: 02/05/21 13:58 Dose: Not Given Documented by: Citric Acid/Sodium Citrate (Citric Acid/Sodium Citrate Solution 30 Ml Cup) 30 ml PO ONETIME ONE Stop: 02/05/21 05:35 Last Admin: 02/05/21 05:55 Dose: 30 ml Documented by: Dexamethasone (Dexamethasone 4 Mg/Ml 5 Ml Mdv) Confirm Administered Dose 20 mg .ROUTE .STK-MED ONE Stop: 02/05/21 06:36 Diphenhydramine HCl (Diphenhydramine 50 Mg/Ml Sdv) 25 mg IVPUSH Q6H PRN PRN Reason: pruritis Last Admin: 02/05/21 00:59 Dose: 25 mg Documented by: Diphenhydramine HCl (Diphenhydramine 50 Mg/Ml Sdv) 25 mg IVPUSH Q6H PRN PRN Reason: Pruritis Diphenhydramine HCl (Diphenhydramine 50 Mg/Ml Sdv) 25 mg IVPUSH Q6H PRN PRN Reason: Itching or Nausea Last Admin: 02/05/21 23:26 Dose: 25 mg Documented by: Docusate Sodium (Docusate Sodium 100 Mg Cap) 100 mg PO Q12H CA Last Admin: 02/07/21 10:42 Dose: Not Given Documented by: Ephedrine Sulfate (Ephedrine 50 Mg/Ml Sdv) 5 mg IVPUSH ASDIRECTED PRN PRN Reason: Hypotension Last Admin: 02/04/21 17:32 Dose: 10 mg Documented by: Ephedrine Sulfate (Ephedrine 50 Mg/Ml Sdv) 5 mg IVPUSH SEECOMMENT PRN PRN Reason: Other Fentanyl (Fentanyl 100 Mcg/2 Ml Sdv) 100 mcg EPIDUR Q3H PRN PRN Reason: Pain Last Admin: 02/04/21 16:00 Dose: 100 mcg Documented by: Fentanyl (Fentanyl 100 Mcg/2 Ml Sdv) Confirm Administered Dose 100 mcg .ROUTE .[facility]-MED ONE Stop: 02/05/21 05:51 Fentanyl (Fentanyl 100 Mcg/2 Ml Sdv) 50 mcg IVPUSH Q5M PRN PRN Reason: Pain Fentanyl/Bupivacaine HCl (Bupivacaine/Fentanyl/Ns 100 Ml Bag) 100 ml EPIDUR ASDIRECTED PRN PRN Reason: Pain Last Admin: 02/05/21 02:17 Dose: 100 ml Documented by: Oxytocin/Lactated Ringer's (Pitocin In Lr 10 Units/1,000 Ml) 10 unit in 1,000 mls @ 12 mls/hr IV TITRATE CA; Protocol Last Titration: 02/03/21 17:59 Dose: 30 munits/min, 180 mls/hr Documented by: Oxytocin/Lactated Ringer's (Pitocin In Lr 10 Units/1,000 Ml) 10 unit in 1,000 mls @ 100 mls/hr IV .CONTINUOUS CA; Protocol Lactated Ringer's (Ringers, Lactated) 1,000 mls @ 100 mls/hr IV ASDIRECTED CA Last Admin: 02/05/21 05:54 Dose: 100 mls/hr Documented by: Oxytocin/Lactated Ringer's (Pitocin In Lr 20 Units/1,000 Ml) 20 unit in 1,000 mls @ 90 mls/hr IV TITRATE CA; Protocol Last Admin: 02/03/21 18:36 Dose: 90 mls/hr Documented by: Oxytocin/Lactated Ringer's (Pitocin In Lr 20 Units/1,000 Ml) 20 unit in 1,000 mls @ 6 mls/hr IV TITRATE CA; Protocol Last Admin: 02/04/21 20:25 Dose: 90 mls/hr Documented by: Cefazolin Sodium/Dextrose 2 gm (/ Premix) 50 mls @ 100 mls/hr IV ONETIME ONE Stop: 02/05/21 06:03 Last Admin: 02/05/21 13:57 Dose: Not Given Documented by: Cefazolin Sodium/Dextrose 1 gm (/ Premix) 50 mls @ 100 mls/hr IV ONETIME ONE Stop: 02/05/21 06:03 Last Admin: 02/05/21 13:57 Dose: Not Given Documented by: Azithromycin 500 mg/ Sodium (Chloride) 250 mls @ 250 mls/hr IV ONETIME STA Stop: 02/05/21 06:33 Last Admin: 02/05/21 05:57 Dose: 250 mls/hr Documented by: Lactated Ringer's (Ringers, Lactated) Confirm Administered Dose 1,000 mls @ as directed .ROUTE .STK-MED ONE Stop: 02/05/21 06:43 Lactated Ringer's (Ringers, Lactated) Confirm Administered Dose 1,000 mls @ as directed .ROUTE .STK-MED ONE Stop: 02/05/21 06:43 Dextrose/Lactated Ringer's (Dextrose 5%-Lactated Ringers) 1,000 mls @ 125 mls/hr IV ASDIRECTED CA Stop: 02/05/21 18:26 Last Admin: 02/05/21 18:06 Dose: 125 mls/hr Documented by: Sodium Chloride (Normal Saline) 1,000 mls @ 999 mls/hr IV ONETIME ONE Stop: 02/05/21 11:55 Last Admin: 02/05/21 11:01 Dose: 999 mls/hr Documented by: Sodium Chloride (Normal Saline) Confirm Administered Dose 1,000 mls @ as directed .ROUTE .STK-MED ONE Stop: 02/05/21 10:59 Last Admin: 02/05/21 13:57 Dose: Not Given Documented by: Ibuprofen (Ibuprofen 800 Mg Tab) 800 mg PO Q8H [facility] Last Admin: 02/05/21 21:52 Dose: 800 mg Documented by: Ibuprofen (Ibuprofen 800 Mg Tab) 800 mg PO Q8H [facility] Last Admin: 02/07/21 06:06 Dose: 800 mg Documented by: Ketorolac Tromethamine (Ketorolac 30 Mg/Ml Sdv) Confirm Administered Dose 30 mg .ROUTE .STK-MED ONE Stop: 02/05/21 05:47 Lidocaine HCl (Lidocaine 1% 50 Ml Mdv) 50 ml INJECT ONETIME [facility] Lidocaine/Epinephrine (Lidocaine 2% With Epinephrine 1:200,000 20 Ml Sdv) Confirm Administered Dose 20 ml .ROUTE .STK-MED ONE Stop: 02/05/21 05:47 Methylergonovine Maleate (Methylergonovine 0.2 Mg/1 Ml Amp) Confirm Administered Dose 0.2 mg .ROUTE .STK-MED ONE Stop: 02/05/21 06:34 Last Admin: 02/05/21 07:38 Dose: 0.2 mg Documented by: Methylergonovine Maleate (Methylergonovine 0.2 Mg/1 Ml Amp) 0.2 mg IM NOW STA Stop: 02/05/21 09:16 Last Admin: 02/05/21 09:28 Dose: 0.2 mg Documented by: Methylergonovine Maleate (Methylergonovine 0.2 Mg/1 Ml Amp) Confirm Administered Dose 0.2 mg .ROUTE .STK-MED ONE Stop: 02/05/21 09:17 Last Admin: 02/05/21 13:56 Dose: Not Given Documented by: Methylergonovine Maleate (Methylergonovine 0.2 Mg/1 Ml Amp) 0.2 mg IM NOW STA Stop: 02/05/21 14:46 Last Admin: 02/05/21 15:01 Dose: 0.2 mg Documented by: Metoclopramide HCl (Metoclopramide 10 Mg/2 Ml Sdv) Confirm Administered Dose 10 mg .ROUTE .STK-MED ONE Stop: 02/05/21 05:44 Last Admin: 02/05/21 13:58 Dose: Not Given Documented by: Metoclopramide HCl (Metoclopramide 10 Mg/2 Ml Sdv) 10 mg IVPUSH ONETIME ONE Stop: 02/05/21 05:35 Last Admin: 02/05/21 05:55 Dose: 10 mg Documented by: Miscellaneous Medication (Phenylephrine Hcl In 0.9% Nacl 1 Mg/10 Ml Syringe) Confirm Administered Dose 1 mg .ROUTE .STK-MED ONE Stop: 02/05/21 06:36 Misoprostol (Misoprostol 25 Mcg (1/4 Of 100 Mcg) Tab) 25 mcg VAG ONETIME ONE Stop: 02/04/21 01:01 Last Admin: 02/04/21 01:14 Dose: 25 mcg Documented by: Misoprostol (Misoprostol 25 Mcg (1/4 Of 100 Mcg) Tab) 50 mcg VAG ONETIME ONE Stop: 02/04/21 04:01 Last Admin: 02/04/21 04:15 Dose: 50 mcg Documented by: Misoprostol (Misoprostol 200 Mcg Tab) 400 mcg PO ONETIME ONE Stop: 02/05/21 08:34 Last Admin: 02/05/21 08:38 Dose: 400 mcg Documented by: Misoprostol (Misoprostol 200 Mcg Tab) Confirm Administered Dose 400 mcg .ROUTE .STK-MED ONE Stop: 02/05/21 08:32 Last Admin: 02/05/21 13:56 Dose: Not Given Documented by: Misoprostol (Misoprostol 200 Mcg Tab) 600 mcg PO Q6H [facility] Last Admin: 02/05/21 14:36 Dose: 600 mcg Documented by: Misoprostol (Misoprostol 200 Mcg Tab) 600 mcg PO BID CA Misoprostol (Misoprostol 200 Mcg Tab) 600 mcg PO Q4HR [facility] Last Admin: 02/05/21 19:18 Dose: 600 mcg Documented by: Misoprostol (Misoprostol 200 Mcg Tab) 600 mcg PO Q4H [facility] Last Admin: 02/06/21 03:07 Dose: 600 mcg Documented by: Morphine Sulfate (Morphine Pf 10 Mg/10 Ml Sdv) Confirm Administered Dose 10 mg .ROUTE .STK-MED ONE Stop: 02/05/21 06:46 Nalbuphine HCl (Nalbuphine 10 Mg/1 Ml Vial) 10 mg IVPUSH Q2H PRN PRN Reason: Pain Naloxone HCl (Naloxone 0.4 Mg/Ml Sdv) 0.1 mg IVPUSH SEECOMMENT PRN PRN Reason: Respiratory Depression Ondansetron HCl (Ondansetron 4 Mg/2 Ml Sdv) 4 mg IVPUSH Q4H PRN PRN Reason: Nausea/Vomiting Last Admin: 02/04/21 17:45 Dose: 4 mg Documented by: Ondansetron HCl (Ondansetron 4 Mg/2 Ml Sdv) Confirm Administered Dose 4 mg .ROUTE .STK-MED ONE Stop: 02/05/21 05:47 Ondansetron HCl (Ondansetron 4 Mg/2 Ml Sdv) 4 mg IVPUSH ONETIME PRN PRN Reason: Nausea/Vomiting Ondansetron HCl (Ondansetron 4 Mg/2 Ml Sdv) 4 mg IV Q4H PRN PRN Reason: Nausea/Vomiting Oxycodone/Acetaminophen (Acetaminophen/Oxycodone 325-5 Mg Tab) 2 tab PO Q4H PRN PRN Reason: Pain (severe 7-10) Last Admin: 02/07/21 01:20 Dose: 2 tab Documented by: Oxycodone/Acetaminophen (Acetaminophen/Oxycodone 325-5 Mg Tab) 1 tab PO Q4H PRN PRN Reason: Pain (moderate 4-6) Last Admin: 02/07/21 11:23 Dose: 1 tab Documented by: Oxytocin (Oxytocin 10 Units/1 Ml Sdv) Confirm Administered Dose 10 unit .ROUTE .STK-MED ONE Stop: 02/05/21 05:47 Oxytocin (Oxytocin 10 Units/1 Ml Sdv) Confirm Administered Dose 10 unit .ROUTE .STK-MED ONE Stop: 02/05/21 05:50 Prenat Multivit/[place]/Iron/Folic Ac ( Multivitamin With Calcium/Folic Acid/Iron Tab) 1 each PO DAILY [facility] Last Admin: 02/07/21 09:46 Dose: Not Given Documented by: Simethicone (Simethicone 80 Mg Tab.Chew) 160 mg PO QID [facility] Last Admin: 02/07/21 08:04 Dose: 160 mg Documented by: Sodium Chloride (Sodium Chloride 0.9% 10 Ml Syringe) 10 ml FLUSH ASDIRECTED PRN PRN Reason: Keep Vein Open Tranexamic Acid (Tranexamic Acid 1,000 Mg/10 Ml Amp) 1,000 mg IVPUSH ONETIME ONE Stop: 02/05/21 09:15 Last Admin: 02/05/21 09:34 Dose: 1,000 mg Documented by: Tranexamic Acid (Tranexamic Acid 1,000 Mg/10 Ml Amp) Confirm Administered Dose 1,000 mg .ROUTE .STK-MED ONE Stop: 02/05/21 09:16 Last Admin: 02/05/21 13:56 Dose: Not Given Documented by:
== END 2021-02-07 12:50 | disposition home or self-care (01) | DRG 540 ==
LOC: UNDOADMOB 02-03 06:50 → JD.OB 02-03 06:50 → INTOOBSV 02-05 05:34 → OBSVTOIN 02-05 05:34 → JD.OB 02-05 06:24 → OBSVTOIN 02-05 06:24 → UNDOADMOB 02-05 06:24 → INTOOBSV 02-05 06:24 → JD.OB 02-05 06:25
PROVIDERS: ADMIT Obstetrics & Gynecology; ATTEND Obstetrics & Gynecology
PROC: 10D00Z1 Extraction of Products of Conception, Low, Open Approach (ICD-10-PCS; principal; 2021-02-05)
PROC: 10H07YZ Insertion of Other Device into Products of Conception, Via Natural or Artificial Opening (ICD-10-PCS; 2021-02-05)
PROC: 3E0P7VZ Introduction of Hormone into Female Reproductive, Via Natural or Artificial Opening (ICD-10-PCS; 2021-02-05)
PROC: 3E0R3BZ Introduction of Anesthetic Agent into Spinal Canal, Percutaneous Approach (ICD-10-PCS; 2021-02-05)
DX: O99.52 Diseases of the respiratory system complicating childbirth (principal); J45.909 Unspecified asthma, uncomplicated; Z37.0 Single live birth; O99.214 Obesity complicating childbirth; E66.9 Obesity, unspecified; O72.1 Other immediate postpartum hemorrhage; Z20.822 Contact with and (suspected) exposure to COVID-19; O62.1 Secondary uterine inertia; O99.02 Anemia complicating childbirth; D62 Acute posthemorrhagic anemia; O99.62 Diseases of the digestive system complicating childbirth; K21.9 Gastro-esophageal reflux disease without esophagitis; Z3A.40 40 weeks gestation of pregnancy
CPT/HCPCS: 01967; 01968; 36410; 36415; 51702; 59025; 76856; 76856-26; 80053; 85025; 85610; 85730; 86592; 86803; 86850; 86900; 86901; A9270-GY; J0456; J0690; J1100; J1200; J1885; J2210; J2270; J2370; J2405; J2590; J2765; J3010; J3490; J7030; J7050; J7120; J7121; U0002